=== PATIENT | female | born 1995 | race Caucasian/White ===

== ENCOUNTER 2020-04-28 16:21 | Emergency (ER) | payer SELFPAY ==
[~2020-04-28] VITALS: Ht 152.4 cm; Wt 56.7 kg
[2020-04-28 16:31] VITALS: Ht 152.4 cm; Wt 56.7 kg
[2020-04-28 17:10] VITALS: BP 109/60
== END 2020-04-28 17:10 | disposition home or self-care (01) ==
LOC: ED 16:21
DX: Z20.828 Contact with and (suspected) exposure to other viral communicable diseases (principal)
CPT/HCPCS: U0003-CS